=== PATIENT | female | born 1975 | race African-American/Black ===

== ENCOUNTER → 2022-07-26 | Day surgery (SDC) | payer BC | END | disposition home or self-care (01) | LOC: JRADIR 10:25 | PROVIDERS: ATTEND Nurse Practitioner Family | PROC: 0G9H3ZX Drainage of Right Thyroid Gland Lobe, Percutaneous Approach, Diagnostic (ICD-10-PCS; principal; 2022-07-26) | DX: E04.1 Nontoxic single thyroid nodule (principal) | CPT/HCPCS: 10005; 76942; 88173; 88305-TC ==